=== PATIENT | male | born 1975 | race Caucasian/White ===

== ENCOUNTER 2019-07-05 06:43 | Day surgery (SDC) | payer MEDICAID ==
[~2019-07-05 06:43] MED LIST: Lactated Ringers 1,000 ML IV SCH
[2019-07-05] MEDS ORDERED: fentaNYL 100 MCG/2 ML SDV ONE (07:16)
[2019-07-05] MEDS ORDERED: Propofol 200 MG/20 ML SDV ONE (07:16)
[2019-07-05] MEDS ORDERED: Midazolam 1 MG/ML 2 ML SDV ONE (07:16)
[2019-07-05] MEDS ORDERED: Bupivacaine 0.5% 30 ML SDV ONE (07:27)
--- NOTE | 2019-07-05 07:32 | PCM.PREANE ---
Preanesthetic Assessment - Anesthesia/Transfusion/Family Hx Anesthesia History: Prior Anesthesia Without Reaction Family History of Anesthesia Reaction: No Transfusion History: No Prior Transfusion(s) - Review of Systems General: No Symptoms Pulmonary: No Symptoms Cardiovascular: No Symptoms Gastrointestinal: No Symptoms Neurological: No Symptoms Other: Reports: None - Physical Assessment Vital Signs: Last Vital Signs Temp 97.0 F 07/05/19 06:56 Pulse 95 07/05/19 06:56 Resp 15 07/05/19 06:56 BP 128/81 07/05/19 06:56 Pulse Ox 98 07/05/19 06:56 Height: 6 ft 3 in Weight: 115.212 kg ASA Class: 2 Mental Status: Alert & Oriented x3 Airway Class: Mallampati = 2 Dentition: Reports: Missing Tooth/Teeth ROM/Head Extension: Full Lungs: Clear to Auscultation, Normal Respiratory Effort Cardiovascular: Regular Rate, Regular Rhythm - Lab Values: Laboratory Last Values POC Glucose 241 mg/dL (60-110) H 07/05/19 07:10 - Allergies Allergies/Adverse Reactions: Allergies Allergy/AdvReac Type Severity Reaction Status Date / Time No Known Allergies Allergy Verified 07/02/19 10:23 - Blood Blood Available: No - Anesthesia Plan Pre-Op Medication Ordered: None - Acknowledgements Anesthesia Type Planned: General Anesthesia Pt an Appropriate Candidate for the Planned Anesthesia: Yes Alternatives and Risks of Anesthesia Discussed w Pt/Guardian: Yes Pt/Guardian Understands and Agrees with Anesthesia Plan: Yes Additional Comments: PMH: htn- 128/81 today, diastolic elevated in surgeons office, DM@- on insulin- no insulin this morning- sugar on [id number] PLAN: GA/lma, lateral positioning. PreAnesthesia Questionnaire HEENT History: Reports: Other (See Below) Other HEENT History: wears glasses Cardiovascular History: Reports: High Cholesterol, Hypertension Respiratory History: Reports: None Gastrointestinal History: Reports: None Genitourinary History: Reports: None Other Musculoskeletal History: dislocated rt knee Neurological History: Reports: Seizure Other Neuro History: "seizure back in high school", none since Psychiatric History: Reports: None Endocrine/Metabolic History: Reports: Diabetes, Type II, Obesity/BMI 30+ Hematologic History: Reports: None Immunologic History: Reports: None Oncologic (Cancer) History: Reports: None Dermatologic History: Reports: None - Past Surgical History Head Surgeries/Procedures: Reports: None HEENT Surgical History: Reports: None Cardiovascular Surgical History: Reports: None Respiratory Surgical History: Reports: None GI Surgical History: Reports: None Male Surgical History: Reports: None Endocrine Surgical History: Reports: None Neurological Surgical History: Reports: None Musculoskeletal Surgical History: Reports: Other (See Below) Other Musculoskeletal Surgeries/Procedures:: rt knee surgery Oncologic Surgical History: Reports: None Dermatological Surgical History: Reports: None - SUBSTANCE USE Smoking Status *Q: Never Smoker Recreational Drug Use History: No - HOME MEDS Home Medications: Home Meds Aspirin [Tate Aspirin] 81 mg PO DAILY 07/02/19 [History] Empagliflozin [Jardiance] 25 mg PO BEDTIME 07/02/19 [History] Insulin Aspart [NovoLOG] 1 injection SUBCUT ASDIRECTED 07/02/19 [History] Insulin Glarg,Human.Rec.Analog [Lantus Solostar] 25 mg PO BEDTIME 07/02/19 [ History] Lisinopril 20 mg PO DAILY 07/02/19 [History] Multivitamin [Multivitamins] 1 tab PO DAILY 07/02/19 [History] atorvaSTATin Calcium [Atorvastatin Calcium] 40 mg PO DAILY 07/02/19 [History] metFORMIN HCl [Metformin HCl] 1,000 mg PO BID 07/02/19 [History] - CURRENT (IN HOUSE) MEDS Current Meds: Current Medications Lactated Ringer's (Ringers, Lactated) 1,000 mls @ 125 mls/hr IV ASDIRECTED [facility] Last Admin: 07/05/19 07:19 Dose: 125 mls/hr Discontinued Medications Bupivacaine HCl (Marcaine 0.5%) Confirm Administered Dose 30 ml .ROUTE .STK-MED ONE Stop: 07/05/19 07:28 Fentanyl (Sublimaze) Confirm Administered Dose 100 mcg .ROUTE .STK-MED ONE Stop: 07/05/19 07:17 Midazolam HCl (Versed 1 Mg/Ml) Confirm Administered Dose 2 mg .ROUTE .STK-MED ONE Stop: 07/05/19 07:17 Propofol (Diprivan 20 Ml) Confirm Administered Dose 200 mg .ROUTE .STK-MED ONE Stop: 07/05/19 07:17
[2019-07-05] MEDS ORDERED: fentaNYL 100 MCG/2 ML SDV IVPUSH PRN (07:43)
[2019-07-05] MEDS ORDERED: Ondansetron 4 MG/2 ML SDV IVPUSH PRN (07:43)
[2019-07-05] MEDS ORDERED: HYDROmorphone 2 MG/ML Syringe IVPUSH PRN (07:44)
[2019-07-05] MEDS ORDERED: Ondansetron 4 MG/2 ML SDV ONE (08:28)
[2019-07-05] MEDS ORDERED: Ketorolac 30 MG/ML SDV ONE (08:48)
--- NOTE | 2019-07-05 09:14 | PCM.OPNOTE ---
- General Post-Op/Procedure Note Date of Surgery/Procedure: 07/05/19 Operative Procedure(s): Excision 5 cm left posterior, lateral neck mass with layered 5 cm closure Pre Op Diagnosis: Enlarging left posterior, lateral neck mass Post-Op Diagnosis: Same Anesthesia Technique: General LMA (ASA II) Primary Surgeon: Bon Nguyen Fluid Replacement, Intraop: 700 EBL in mLs: 5 Condition: Good Free Text/Narrative:: DICTATION [id number] CPT CODE [id number]
--- NOTE | 2019-07-05 09:33 | PCM48HPAN ---
Post Anesthesia Note - EVALUATION WITHIN 48HRS OF ANESTHETIC Vital Signs in Normal Range: Yes Patient Participated in Evaluation: Yes Respiratory Function Stable: Yes Airway Patent: Yes Cardiovascular Function Stable: Yes Hydration Status Stable: Yes Pain Control Satisfactory: Yes Nausea and Vomiting Control Satisfactory: Yes Mental Status Recovered: Yes Vital Signs: Last Vital Signs Temp 97.0 F 07/05/19 06:56 Pulse 74 07/05/19 09:31 Resp 14 07/05/19 09:31 BP 125/94 H 07/05/19 09:31 Pulse Ox 95 07/05/19 09:31
--- NOTE | 2019-07-05 09:33 | PCM.POSTAN ---
POST ANESTHESIA ASSESSMENT - MENTAL STATUS Mental Status: Alert, Oriented - VITAL SIGNS Vital Signs: Last Vital Signs Temp 97.0 F 07/05/19 06:56 Pulse 74 07/05/19 09:31 Resp 14 07/05/19 09:31 BP 125/94 H 07/05/19 09:31 Pulse Ox 95 07/05/19 09:31 - RESPIRATORY Respiratory Status: Respiratory Rate WNL, Airway Patent, O2 Saturation Stable - CARDIOVASCULAR CV Status: Pulse Rate WNL, Blood Pressure Stable - GASTROINTESTINAL GI Status: No Symptoms - POST OP HYDRATION Hydration Status: Adequate & Stable
--- NOTE | 2019-07-05 14:18 | OR ---
SURGEON: Bon Nguyen M.D. DATE OF PROCEDURE: 07/05/2019 OPERATION PERFORMED: Excision of 5 cm left posterior lateral neck mass. PRIMARY SURGEON: Bon Nguyen M.D. ANESTHESIA: General LMA. ASA CLASSIFICATION: II. PREOPERATIVE DIAGNOSIS: Enlarging left posterior lateral neck mass. POSTOPERATIVE DIAGNOSIS: Enlarging left posterior lateral neck mass. ESTIMATED BLOOD LOSS: 5 mL. INTRAOPERATIVE FLUID REPLACEMENT: 700 mL of crystalloid. DESCRIPTION OF PROCEDURE: The patient was taken to the operating room, placed on the operating table on the beanbag in the supine position. Following satisfactory attainment of general anesthesia with placement of an LMA, the patient was placed in the right lateral decubitus position. Care was taken to pad all bony prominences with appropriate rolls. The left arm and wrist were placed in a wrist restraint and retracted distally to allow for exposure. The surgical site was then prepped with DuraPrep solution. Sterile drapes were applied. The skin around the mass was infiltrated with 10 mL of 0.5% Marcaine solution. Elliptical skin incision was made to encompass the cutaneous pore. Dissection was carried down through the skin and subcutaneous tissue to the mass. Mass clinically appeared to be an inclusion cyst. The cyst was entered in several places as it was quite thin- walled. Nevertheless, using sharp dissection and electrocautery, we were able to remove the entire cyst wall. The wound was inspected for hemostasis and small bleeding sites were electrocoagulated. The wound was then irrigated with sterile saline solution. All fluid was aspirated. No other bleeding sites were identified. The incision which was 5 cm long was closed in 2 layers approximating the subcutaneous tissue with 3-0 Vicryl and the skin with subcuticular 4-0 Monocryl. The incision was then Steri-Stripped and dressed with a sterile Tegaderm pad. Sponge, needle, and instrument counts were all correct. The patient was placed back into the supine position. Following emergence from anesthesia and extubation, he was taken to recovery room in stable condition. SIA CORREA /[id number]
== END 2019-07-05 10:39 | disposition home or self-care (01) ==
LOC: MW.SDS 06:43
PROVIDERS: ATTEND Surgery
DX: L72.0 Epidermal cyst (principal); E78.5 Hyperlipidemia, unspecified; E11.9 Type 2 diabetes mellitus without complications; E78.00 Pure hypercholesterolemia, unspecified; I10 Essential (primary) hypertension; E66.9 Obesity, unspecified; Z79.4 Long term (current) use of insulin; Z79.82 Long term (current) use of aspirin; Z79.899 Other long term (current) drug therapy; Z68.31 Body mass index [BMI] 31.0-31.9, adult
CPT/HCPCS: 11426; 12042; 82962; J0131; J1885; J2001; J2250; J2405; J2704; J3010; J3490; J7120; 88304